=== PATIENT | female | born 1950 | race Caucasian/White ===

== ENCOUNTER 2017-12-26 20:14 | Inpatient (IN) | payer OTHER ==
[~2017-12-26] VITALS: Ht 154.9 cm; Wt 86.8 kg
[~2017-12-26 20:14] MED LIST: PERCOCET 5/31 TABLET PO; VICODIN 5-3001 EACH PO; ZOFRAN4 MG PO
[2017-12-26 20:43] LABS: HEMATOCRIT 36.6 % (36.0-46.0); MCHC 35.5 G/DL (30.0-36.0); MCV 87.1 FL (83-99); PLATELET COUNT 240 K/uL (156-360); RBC DIS.WIDTH-CV 13.3 % (11.8-14.6); RBC DIS.WIDTH-SD 42.8 % (39-53); WHITE BLOOD COUNT 19.5 K/uL (4.1-10.2)
[2017-12-26 20:51] LABS: CHLORIDE 98 mEq/L (99-109); POTASSIUM 3.7 mEq/L (3.7-5.4); SODIUM 135 mEq/L (136-147)
[2017-12-26 20:53] LABS: GLUCOSE 135 mg/dL (70-99)
[2017-12-26 20:56] LABS: GFR ESTIMATE (CALCULATED) 59 mL/min/
[2017-12-26 20:57] LABS: UREA NITROGEN (BUN) 11 mg/dL (9-23)
[2017-12-27 01:23] LABS: APPEARANCE CLEAR ((CLEAR)); BILIRUBIN NEGATIVE; BLOOD SMALL; COLOR STRAW ((YELLOW)); GLUCOSE (STRIP) NEGATIVE; KETONES NEGATIVE; LEUKOCYTES SMALL; NITRITE NEGATIVE; PROTEIN (STRIP) NEGATIVE; UROBILINOGEN 0.2 MG/DL (0.2-1.0)
[2017-12-27 01:27] LABS: BACTERIA NONE SEEN /HPF; EPITHELIAL CELLS RARE /HPF; MUCUS TRACE /LPF; RED BLOOD CELLS 0-5 /HPF (0-5); UCUL ADDED? NO; WHITE BLOOD CELLS 0-5 /HPF (0-5)
[2017-12-27 05:18] VITALS: BP 91/55
[2017-12-27 07:25] VITALS: BP 96/55
[2017-12-27 07:48] LABS: HEMATOCRIT 37.4 % (36.0-46.0); HEMOGLOBIN 12.3 G/DL (11.9-15.5); MCH 29.6 PG (29.0-34.0); MCHC 32.9 G/DL (30.0-36.0); MCV 90.1 FL (83-99); PLATELET COUNT 237 K/uL (156-360); RBC DIS.WIDTH-CV 13.6 % (11.8-14.6); RBC DIS.WIDTH-SD 45.1 % (39-53); RED BLOOD COUNT 4.15 M/uL (3.80-5.20); WHITE BLOOD COUNT 16.2 K/uL (4.1-10.2)
[2017-12-27 08:11] LABS: ALBUMIN 3.9 G/DL (3.2-4.8); ALKALINE PHOSPHATASE 61 IU/L (3-129); ALT (GPT) 12 IU/L (3-49); AST (GOT) 12 IU/L (2-34); CHLORIDE 99 MEQ/L (99-109); CREATININE 0.9 MG/DL (0.6-1.3); GFR ESTIMATE (CALCULATED) > 59 mL/min/; GLUCOSE 112 mg/dL (70-99); POTASSIUM 3.4 MEQ/L (3.7-5.4); SODIUM 136 MEQ/L (136-147); TOTAL BILIRUBIN 0.6 MG/DL (0.0-1.0); TOTAL PROTEIN 6.5 G/DL (6.4-8.3); UREA NITROGEN (BUN) 10 mg/dL (9-23)
[2017-12-27 09:08] LABS: HEMOGLOBIN A1c (GLYCOHEMOGLOB) 5.9 % (Below 5.7)
[2017-12-27] MEDS ORDERED: NORVASC5 MG PO (12:32)
[2017-12-27] MEDS ORDERED: GLUCOPHAGE1000 MG PO (12:32)
[2017-12-27] MEDS ORDERED: LISINOPRIL40 MG PO (12:33)
[2017-12-27] MEDS ORDERED: VESICARE5 MG PO (12:33)
[2017-12-27] MEDS ORDERED: HYDROCHLOROTHIA25 MG PO (12:34)
[2017-12-27] MEDS ORDERED: CALCIUM 600 +1 EAC1 PO (12:34)
[2017-12-27] MEDS ORDERED: PRAVACHOL40 MG PO (12:34)
[2017-12-27] MEDS ORDERED: VITAMIN B-121000 MC3 PO (12:35)
[2017-12-27] MEDS ORDERED: BACTRIM,SEPT1 TABLET PO (12:36)
[2017-12-27 15:28] VITALS: BP 99/54
[2017-12-27 15:53] LABS: HEMATOCRIT 32.4 % (36.0-46.0); HEMOGLOBIN 10.9 G/DL (11.9-15.5); MCV 90.5 FL (83-99)
[2017-12-27 20:51] LABS: HEMATOCRIT 31.9 % (36.0-46.0); HEMOGLOBIN 10.7 G/DL (11.9-15.5); MCV 89.9 FL (83-99)
[2017-12-27 23:32] VITALS: BP 104/58
[2017-12-28 05:36] LABS: HEMATOCRIT 32.1 % (36.0-46.0); HEMOGLOBIN 10.8 G/DL (11.9-15.5); MCH 30.6 PG (29.0-34.0); MCHC 33.6 G/DL (30.0-36.0); MCV 90.9 FL (83-99); PLATELET COUNT 208 K/uL (156-360); RBC DIS.WIDTH-CV 13.9 % (11.8-14.6); RBC DIS.WIDTH-SD 46.4 % (39-53); RED BLOOD COUNT 3.53 M/uL (3.80-5.20); WHITE BLOOD COUNT 11.4 K/uL (4.1-10.2)
[2017-12-28 05:59] LABS: ALBUMIN 3.3 G/DL (3.2-4.8); CHLORIDE 106 MEQ/L (99-109); CREATININE 0.7 MG/DL (0.6-1.3); GFR ESTIMATE (CALCULATED) > 59 mL/min/; GLUCOSE 106 mg/dL (70-99); PHOSPHORUS 2.8 mg/dL (2.5-4.9); SODIUM 139 MEQ/L (136-147); UREA NITROGEN (BUN) 5 mg/dL (9-23)
[2017-12-28 06:01] LABS: POTASSIUM 4.1 MEQ/L (3.7-5.4)
[2017-12-28 06:53] VITALS: BP 115/61
[2017-12-28] MEDS ORDERED: FLAGYL500 MG PO (07:49)
[2017-12-28] MEDS ORDERED: CIPRO500 MG PO (07:49)
[2017-12-28 15:03] VITALS: BP 135/73
[2017-12-29] VITALS: BP 116/65
[2017-12-29 05:19] LABS: HEMATOCRIT 31.4 % (36.0-46.0); HEMOGLOBIN 10.3 G/DL (11.9-15.5); MCH 29.8 PG (29.0-34.0); MCHC 32.8 G/DL (30.0-36.0); MCV 90.8 FL (83-99); PLATELET COUNT 237 K/uL (156-360); RBC DIS.WIDTH-CV 13.6 % (11.8-14.6); RBC DIS.WIDTH-SD 45.8 % (39-53); RED BLOOD COUNT 3.46 M/uL (3.80-5.20); WHITE BLOOD COUNT 11.1 K/uL (4.1-10.2)
[2017-12-29 07:37] VITALS: BP 132/78
[2017-12-29] MEDS ORDERED: HYDROCODON-ACE1 EAC7 PO (08:54)
[2017-12-29] MEDS ORDERED: ZOFRAN4 MG PO (08:54)
== END 2017-12-29 16:10 | disposition home or self-care (01) | DRG 387 ==
LOC: EME 20:14 → EDOF 12-27 03:30 → 5SOUTH 12-27 03:30 → ENRESERV 12-27 03:36 → 5SOUTH 12-27 04:50
PROVIDERS: Hospitalist; Internal Medicine Gastroenterology; Physician Assistant; Physician Assistant Medical
DX: K51.511 Left sided colitis with rectal bleeding (principal); E87.6 Hypokalemia; R09.02 Hypoxemia; I95.9 Hypotension, unspecified; I10 Essential (primary) hypertension; E78.5 Hyperlipidemia, unspecified; E11.9 Type 2 diabetes mellitus without complications; N32.81 Overactive bladder; Z66 Do not resuscitate; E66.9 Obesity, unspecified; Z68.36 Body mass index [BMI] 36.0-36.9, adult; Z79.84 Long term (current) use of oral hypoglycemic drugs
CPT/HCPCS: 71046; 71275; 74177; 80048; 80053; 80069; 81003; 82948; 83036; 83605; 83630; 85014; 85018; 85027; 86850; 86900; 86901; 87040; 87177; 87493; 87506; 99281; 99285; J0744; J2405; J7030; S0030